=== PATIENT | male | born 1935 | race Caucasian/White ===

== ENCOUNTER → 2017-11-19 | Day surgery (SDC) | payer MEDICARE, BC ==
[~2017-11-19] MED LIST: ALPRAZOLAM0.5 M1 PO; ASPIR 8181 MG PO; B-121000 MCG PO; BUPIVACAINE HCL 0.5% INJ 30 ML VIAL INJ ONE; CEFAZOLIN SOD 1 GM/NS 50ML 50 ML IV ONE; CENTRUM SILVER1 EAC3 PO; DEXAMETHASONE SOD PHOS INJ 4 MG/ML VIAL ONE; DEXILANT60 MG PO; FAMOTIDINE 20 MG/2 ML VIAL IV ONE; FENTANYL CITRATE/PF 100MCG/2 ML INJ ONE; GENERLAC10 GM/15 M PO; LEVOTHYROXINE25 MCG PO; LIDOCAINE HCL 2% LOCAL INJ 5 ML SDV VIAL INJ ONE; LINZESS PO; MAGNESIUM200 MG PO; MUPIROCIN 2% OINT 22 GM TUBE ONE; NORCO 10-325 T1 EACH PO; ONDANSETRON HCL INJ 2 MG/ML VIAL ONE; PANTOPRAZOLE SO40 MG PO; PLAVIX75 MG PO; PRAVASTATIN SOD80 MG PO; PROAIR HFA INH8.5 GM INH; PROBIOTIC & AC1 EACH PO; PROPOFOL IV EMULSION 10 MG/ML 20 ML VIAL ONE; SEVOFLURANE INHAL SOLN 250 ML PEN BTL ONE; STOOL SOFTNER PO; TAMSULOSIN HCL0.4 MG PO; TYLENOL WITH C1 EACH PO; VITAMIN D-32000 UNIT PO; ZYRTEC10 M3 PO
--- NOTE | 2017-11-19 16:40 | Operative Report ---
DATE OF PROCEDURE: November 19, 2017 PREOPERATIVE DIAGNOSIS: 1. Left carpal tunnel syndrome. 2. Left Dupuytren's contracture of long finger. 3. Left Dupuytren's contracture of left ring finger. POSTOPERATIVE DIAGNOSIS: 1. Left carpal tunnel syndrome. 2. Left Dupuytren's contracture of long finger. 3. Left Dupuytren's contracture of left ring finger. 4. Flexor tenosynovitis, wrist. OPERATION PERFORMED: 1. Left open carpal tunnel release. 2. Flexor tenosynovectomy, left wrist. 3. Excision of Dupuytren's cord, left long finger. 4. Excision of Dupuytren's cord, left ring finger. ANESTHESIA: General. HISTORY: The patient is an 82-year-old male who has left carpal tunnel syndrome and left Dupuytren's contracture of the left long and ring fingers. Risks, benefits and alternatives of treatment were discussed with the patient and the family. He is prepared to undergo the procedures outlined. DETAILS OF PROCEDURE: Patient was marked preoperatively in the holding area. He was brought to the operating theater, and after the induction of adequate general anesthesia, he was prepped and draped in a supine position. A time out was performed. The procedure was begun by marking out a 2 cm incision in the left intrathenar space and marking out the Dupuytren's cords to the long and ring fingers. The left upper extremity was exsanguinated, and a tourniquet was inflated to a pressure of 250 mmHg. The incision in the intrathenar space was made through the skin and subcutaneous tissues. All venous tributaries were controlled with the bipolar cautery. The incision was deepened through the palmar fascia until the transverse carpal ligament was identified. The ligament was sharply sectioned, taking care to protect and preserve the median nerve underlying it. After the complete width of the ligament was transected, the distal volar forearm fascia was divided under direct view. Proliferative flexor tenosynovium was noticed to encompass the median nerve, and this was radically excised. After performing this maneuver, the nerve was noted to lie adequately decompressed. The wound was copiously irrigated with bacteriostatic saline and closed with 5-0 nylon in interrupted horizontal mattress fashion, and a Marcaine field block was performed at the operative site. The incision over the Dupuytren's cord to the left long finger was made through the skin into the dermis. Using careful sharp dissection, the skin flaps were elevated off of the palmar fascial cord. Once the entire cord was visible proximally, a hemostat was used to place it underneath the proximal portion of the cord and elevated out of the palm. It was then transected using the scalpel. At this point, the radial and ulnar neurovascular bundles on either side of the cord were identified; and using these as landmarks, the cord was dissected free, keeping the neurovascular bundles as well as the tendon sheath directly underneath the cord in direct view. The cord was excised from proximal to distal to the level of the MP joint. At this point, the dissection continued on to the proximal phalanx and terminated at the base of the middle phalanx, once again keeping the neurovascular bundles in full view and undisturbed on both sides. Once the entire cord had been removed, both the MP joint and the PIP joint extended passively to 0 degrees without any difficulty. Underneath the ulnar side of the skin flap for the cord resection, the skin was elevated sharply towards the ring finger until the palmar cord to the ring finger was identified. This cord started in the proximal palm and terminated at the level of the MP joint. Once again with the neurovascular bundle in direct view, the cord was transected both proximally and distally and then dissected free. Both cords were sent for permanent pathologic examination. The wound was copiously irrigated with bacteriostatic saline. The tourniquet was deflated, and the wound was made hemostatic using the bipolar cautery. A Warren drain was placed in the depths of the wound, and then the skin was closed over the Rhys drain with 5-0 nylon in an interrupted horizontal mattress fashion. At the level of the MP flexion crease of the left long finger, a Z-plasty was performed and sutured with 5-0 nylon suture. At the completion of the procedure, all the fingers pinked up nicely. The fingers were passively extended to 0 degrees without any circulatory compromise, and a sterile bulking conforming bandage was applied to the hand, wrist and forearm. A fiberglass splint was used to maintain the wrist in a modest amount of extension and keep the MPs at approximately 60 to 70 degrees and the IPs neutral. This was held in place with a loosely wrapped Malik wrap. The patient tolerated the procedure well and was brought to the recovery room in satisfactory condition and discharged with a postoperative instruction sheet as well as a followup appointment. Job#: [id number] KRIS
== END | disposition home or self-care (01) ==
LOC: OR 06:43
PROVIDERS: ATTEND Plastic Surgery
DX: M72.0 Palmar fascial fibromatosis [Dupuytren] (principal); G56.02 Carpal tunnel syndrome, left upper limb; J44.9 Chronic obstructive pulmonary disease, unspecified; I50.9 Heart failure, unspecified; E03.9 Hypothyroidism, unspecified; K21.9 Gastro-esophageal reflux disease without esophagitis; N40.0 Benign prostatic hyperplasia without lower urinary tract symptoms; F41.9 Anxiety disorder, unspecified; F32.9 Major depressive disorder, single episode, unspecified; Z79.02 Long term (current) use of antithrombotics/antiplatelets; Z79.82 Long term (current) use of aspirin; Z95.0 Presence of cardiac pacemaker; Z87.891 Personal history of nicotine dependence
CPT/HCPCS: 26123; 26125; 64721; 88304; J1100; J2001; J2405

== ENCOUNTER 2017-12-30 05:14 | Emergency (ER) | payer MEDICARE, BC ==
[~2017-12-30] VITALS: Ht 172.7 cm; Wt 70.3 kg
[~2017-12-30 05:14] MED LIST changes: -EPHEDRINE SULFATE INJ 50 MG/10 ML SYR ONE; -FENTANYL CITRATE/PF 100MCG/2 ML INJ ONE; -GLUCAGON FOR INJ 1 MG VIAL ONE; -HYOSCYAMINE SULFATE 0.5 MG/ML AMP ONE; -MIDAZOLAM HCL 2 MG/2 ML VIAL ONE; -PROPOFOL IV EMULSION 10 MG/ML 50 ML VIAL ONE
[2017-12-30] MEDS ORDERED: PANTOPRAZOLE 40 MG 10ML VIAL IV STA (05:44)
[2017-12-30] MEDS ORDERED: SODIUM CHLORIDE 0.9% 1000ML 1,000 ML IV STA (05:44)
--- NOTE | 2017-12-30 06:28 | Diagnostic Imaging Report ---
EXAM: CHEST 2 VIEWS, PA and lateral ORDER DATE: 12/30/2017 5:44 AM TIME STAMP ON EXAM: 0554 hours INDICATION: Abdominal pain COMPARISON: None FINDINGS: Limited lateral view secondary to overlying material. LINES/TUBES: Left approach dual lead cardiac device. LUNGS: Bibasilar scarring or atelectasis. PLEURA: No effusions or pneumothorax. HEART AND MEDIASTINUM: Normal size and contour. BONES AND SOFT TISSUES: No acute findings. IMPRESSION: Bibasilar scarring/atelectasis. Signed by: Dr. Ruthy Pickens M.D. on 12/30/2017 6:24 AM
--- NOTE | 2017-12-30 06:29 | Diagnostic Imaging Report ---
EXAM: ABDOMEN COMP INCL UPR or DECUB, supine and erect ORDER DATE: 12/30/2017 5:44 AM Time stamp on exam: 0600 hrs INDICATION: Abdominal pain, patient started bowel prep yesterday for colonoscopy COMPARISON: None FINDINGS: LINES/TUBES: None BOWEL PATTERN: No evidence for obstruction. SOFT TISSUES: No abnormal calcifications. No mass effect. Surgical clips right upper quadrant of the abdomen. LUNG BASES: Not well evaluated on this exam. Partially visualized cardiac leads BONES: No acute findings. Left hip arthroplasty. Degenerative changes of the right hip and lumbar spine. IMPRESSION: Nonobstructive bowel gas pattern. No evidence of free peritoneal air. Signed by: Dr. Ruthy Pickens M.D. on 12/30/2017 6:25 AM
[2017-12-30 06:33] LABS: INR 0.97; PROTHROMBIN TIME 13.4 seconds (11.9-14.5)
[2017-12-30 06:34] LABS: PARTIAL THROMBOPLASTIN TIME 27.1 seconds (23.8-35.5)
[2017-12-30 06:38] LABS: BASOPHILS # (AUTO) 0.1 (0.0-0.1); BASOPHILS % 0.4 % (0.0-1.0); EOSINOPHILS # (AUTO) 0.2 (0.0-0.4); EOSINOPHILS % 1.5 % (0.0-6.0); HEMATOCRIT 44.8 % (38.2-49.6); HEMOGLOBIN 14.6 g/dL (14.0-18.0); LYMPHOCYTES # (AUTO) 0.9 (1.0-3.2); LYMPHOCYTES % 6.8 % (18.0-39.1); MEAN CORPUSCULAR HEMOGLOBIN 32.8 pg (28-32); MEAN CORPUSCULAR HGB CONC 32.6 g/dL (31-35); MEAN CORPUSCULAR VOLUME 100.7 fL (81-99); MONOCYTES # (AUTO) 1.2 (0.2-0.8); MONOCYTES % 8.8 % (4.4-11.3); NEUTROPHILS % 82.1 % (38.7-80.0); PLATELET COUNT 226 x10e3/uL (140-360); RED BLOOD COUNT 4.45 x10e6/uL (4.3-5.7); RED CELL DISTRIBUTION WIDTH 12.8 % (11.7-14.4)
[2017-12-30 06:44] LABS: CREATINE KINASE MB 2.1 ng/mL (0.00-5.00); TROPONIN I 0.005 ng/mL (0-0.300)
[2017-12-30 06:58] LABS: ALBUMIN 3.9 g/dL (3.5-5.0); ALBUMIN/GLOBULIN RATIO 1.1 (0.8-2.0); ANION GAP 16.1 mmol/L (8-16); CALCIUM 9.2 mg/dL (8.4-10.2); CREATININE, SERUM 1.19 mg/dL (0.72-1.25); MAGNESIUM 2.7 MG/DL (1.3-2.1); POTASSIUM 4.1 mmol/L (3.5-5.1)
== END 2017-12-30 08:15 | disposition home or self-care (01) ==
LOC: ER 05:14
DX: R10.84 Generalized abdominal pain (principal); R19.7 Diarrhea, unspecified; K21.9 Gastro-esophageal reflux disease without esophagitis; Z95.810 Presence of automatic (implantable) cardiac defibrillator
CPT/HCPCS: 36415; 71020; 74020; 80053; 82550; 82553; 83735; 84484; 85025; 85610; 85730; 93005; 99284; J7030; 71046

== ENCOUNTER → 2017-12-30 | Day surgery (SDC) | payer MEDICARE, BC ==
[2017-12-25 13:47] LABS: BASOPHILS % 0.4 % (0.0-1.0); EOSINOPHILS # (AUTO) 0.3 (0.0-0.4); EOSINOPHILS % 3.3 % (0.0-6.0); HEMATOCRIT 44.3 % (38.2-49.6); HEMOGLOBIN 14.6 g/dL (14.0-18.0); LYMPHOCYTES # (AUTO) 1.2 (1.0-3.2); LYMPHOCYTES % 15.4 % (18.0-39.1); MEAN CORPUSCULAR VOLUME 100.2 fL (81-99); MONOCYTES # (AUTO) 1.1 (0.2-0.8); MONOCYTES % 14.5 % (4.4-11.3); NEUTROPHILS # (AUTO) 5.2 (2.1-6.9); PLATELET COUNT 225 x10e3/uL (140-360); RED BLOOD COUNT 4.42 x10e6/uL (4.3-5.7); RED CELL DISTRIBUTION WIDTH 12.7 % (11.7-14.4)
[~2017-12-30] MED LIST changes: -BUPIVACAINE HCL 0.5% INJ 30 ML VIAL INJ ONE; -CEFAZOLIN SOD 1 GM/NS 50ML 50 ML IV ONE; -DEXAMETHASONE SOD PHOS INJ 4 MG/ML VIAL ONE; +EPHEDRINE SULFATE INJ 50 MG/10 ML SYR ONE; -FAMOTIDINE 20 MG/2 ML VIAL IV ONE; +GLUCAGON FOR INJ 1 MG VIAL ONE; +HYOSCYAMINE SULFATE 0.5 MG/ML AMP ONE; -LIDOCAINE HCL 2% LOCAL INJ 5 ML SDV VIAL INJ ONE; +MIDAZOLAM HCL 2 MG/2 ML VIAL ONE; -MUPIROCIN 2% OINT 22 GM TUBE ONE; -ONDANSETRON HCL INJ 2 MG/ML VIAL ONE; -PROPOFOL IV EMULSION 10 MG/ML 20 ML VIAL ONE; +PROPOFOL IV EMULSION 10 MG/ML 50 ML VIAL ONE; -SEVOFLURANE INHAL SOLN 250 ML PEN BTL ONE
--- NOTE | 2017-12-30 11:16 | Operative Report ---
DATE OF PROCEDURE: December 30, 2017 REFERRING PHYSICIAN: Dr. Bert Jcainto PROCEDURES PERFORMED 1. Esophagogastroduodenoscopy. 2. Colonoscopy with polypectomy. INDICATIONS FOR EGD: Burning upper abdominal pain and bloating. INDICATIONS FOR COLONOSCOPY: Colorectal cancer screening and history of colon polyps. MEDICATION: Patient was done under MAC. Please see anesthesiologist's note. PROCEDURE: With the patient in the left lateral decubitus position, the flexible fiberoptic Olympus gastroscope was introduced into the esophagus under direct visualization without any difficulty. There was some patchy erythema noted in the distal esophagus. The scope was then advanced with ease into the stomach, and mucosa overlying the antrum and the body revealed some patchy erythema and moderate edema, and biopsies were obtained and sent to stain for H. pylori. Some focal nodularity was noted in the upper body and that was biopsied. The pylorus appeared to be of normal contour and shape. It was intubated with ease. The scope was advanced all the way to the 2nd portion of the duodenum. The scope was then withdrawn slowly, and mucosa overlying the proximal 2nd portion and the duodenal bulb appeared to be within normal limits. The scope was then withdrawn back into the stomach and retroflexed. The mucosa overlying the fundus appeared to be within normal limits. There was also an intact Mahi fundoplication that was also noted. The scope was then straightened out. The stomach was decompressed. The scope was subsequently withdrawn. Patient tolerated the procedure well. IMPRESSION 1. Mild distal esophagitis. 2. Status post Mahi fundoplication, intact. 3. Gastritis, biopsied. Biopsies sent to stain for Helicobacter. pylori. 4. Focal nodularity, upper body, biopsied. PLAN: Follow up histology. Continue Protonix 40 mg 1 p.o. a.c. b.i.d. Add Carafate 1 g p.o. a.c. t.i.d. and at bedtime. Patient was then turned around. After adequate lubrication of the anal canal, a flexible fiberoptic Olympus colonoscope was inserted into the rectum with ease and advanced all the way to the cecum. The scope was then withdrawn slowly. Mucosa overlying the cecum, ascending colon and transverse colon grossly appeared to be within normal limits. Of note, the colon was excessively tortuous and spastic. One polyp was snared from the descending colon. There was a 5 mm submucosal lesion with a yellowish over-hue suspicious for a lipoma that was hot biopsied. Some diverticulosis was noted in the sigmoid colon. The rectum grossly appeared to be within normal limits. The scope was then retroflexed into the distal rectum and the area around the dentate line was grossly unremarkable. The scope was then straightened out. The rectosigmoid area, as well as the distal rectal area were decompressed. The scope was subsequently withdrawn. Patient tolerated the procedure well. IMPRESSION 1. Colon excessively tortuous and spastic. 2. Descending colon polyp, snared. 3. Approximately 5 mm flat lesion in the descending colon with yellowish over-hue, ?lipoma, hot biopsied. 4. Diverticulosis. PLAN: Follow up histology. Initiate high-fiber and low-fat diet. Initiate high-fiber supplement. Increase water intake to at least 64 ounces of water a day. Timing of followup colonoscopy pending pathology report. Job#: [id number] RI cc:BERT JACINTO MD
== END | disposition home or self-care (01) ==
LOC: ENDO 08:15
PROVIDERS: ATTEND Internal Medicine Gastroenterology
DX: K29.70 Gastritis, unspecified, without bleeding (principal); D12.4 Benign neoplasm of descending colon; K31.7 Polyp of stomach and duodenum; K20.9 Esophagitis, unspecified; K31.89 Other diseases of stomach and duodenum; K58.9 Irritable bowel syndrome, unspecified; K21.0 Gastro-esophageal reflux disease with esophagitis; K44.9 Diaphragmatic hernia without obstruction or gangrene; K63.9 Disease of intestine, unspecified; K59.00 Constipation, unspecified; K57.30 Diverticulosis of large intestine without perforation or abscess without bleeding; I25.10 Atherosclerotic heart disease of native coronary artery without angina pectoris; I50.9 Heart failure, unspecified; E03.9 Hypothyroidism, unspecified; R03.0 Elevated blood-pressure reading, without diagnosis of hypertension; J44.9 Chronic obstructive pulmonary disease, unspecified; R19.6 Halitosis; F32.9 Major depressive disorder, single episode, unspecified; F41.9 Anxiety disorder, unspecified; Z01.812 Encounter for preprocedural laboratory examination; Z79.02 Long term (current) use of antithrombotics/antiplatelets; Z79.82 Long term (current) use of aspirin; Z87.442 Personal history of urinary calculi; Z95.0 Presence of cardiac pacemaker
CPT/HCPCS: 36415; 43239; 45384; 45385; 85025; 88305; 88312; J1610; J1980; J2250

== ENCOUNTER → 2021-08-14 | Outpatient (CLI) | payer MEDICARE, BC ==
[~2021-08-14] MED LIST changes: +IOPAMIDOL 370 MG/ML 200 ML INFUS..BTL INJ ONE; +SODIUM CHLORIDE 0.9% 50ML 50 ML ONE
== END ==
LOC: CT 11:51
PROVIDERS: ATTEND Internal Medicine Gastroenterology
DX: R10.84 Generalized abdominal pain (principal); R63.4 Abnormal weight loss
CPT/HCPCS: 74177; Q9967

== ENCOUNTER → 2021-11-20 | Outpatient (CLI) | payer MEDICARE, BC ==
[~2021-11-20] MED LIST changes: -IOPAMIDOL 370 MG/ML 200 ML INFUS..BTL INJ ONE; -SODIUM CHLORIDE 0.9% 50ML 50 ML ONE
== END ==
LOC: DX 08:20
PROVIDERS: ATTEND Internal Medicine Gastroenterology
DX: R10.9 Unspecified abdominal pain (principal); Z20.822 Contact with and (suspected) exposure to COVID-19
CPT/HCPCS: 74250; U0002

== ENCOUNTER 2023-08-31 11:51 | Outpatient (RCR) | payer MEDICARE, BC | END 2023-09-29 | LOC: RESP 11:51 | PROVIDERS: ATTEND Internal Medicine Pulmonary Disease | DX: R06.02 Shortness of breath (principal) | CPT/HCPCS: 94626 ×8; G0238 ×8 ==

== ENCOUNTER 2023-10-01 13:17 | Outpatient (RCR) | payer MEDICARE, BC | END 2023-10-29 | LOC: RESP 13:17 | PROVIDERS: ATTEND Internal Medicine Pulmonary Disease | DX: R06.02 Shortness of breath (principal) | CPT/HCPCS: 94626 ×7; G0238 ×7 ==